=== PATIENT | female | born 1955 | race Caucasian/White ===

== ENCOUNTER 2016-05-11 10:04 | Inpatient (IN) ==
[2016-05-11] MEDS ORDERED: Ondansetron 4 MG/2 ML VIAL IVP PRN ×2 (12:27→16:49)
[2016-05-11] MEDS ORDERED: Naloxone 0.4 MG/ML INJ IVP PRN ×2 (12:27→16:49)
[2016-05-11] MEDS ORDERED: *HR* HYDROmorphone (PF) 1 MG/ML SYRINGE IVP PRN ×3 (12:29→16:49)
[2016-05-11] MEDS ORDERED: Acetaminophen IV 1,000 MG/100 ML INFUS..BTL IVPB PRN ×2 (12:29→16:49)
[2016-05-11] MEDS ORDERED: 0.9 % Sodium Chloride 1,000 ML IVC SCH ×2 (12:30→16:49)
--- NOTE | 2016-05-11 12:35 | General Surg History&Physical ---
<Leticia Mendoza - Last Filed: 05/11/16 12:32> Date of Encounter: 05/11/16 Time of Encounter: 12:15 Assessment and Plan (1) Inflammation of colonic mucosa Current Visit: Yes Status: Acute The assessment and plan as outlined above was discussed with the patient and/or family members who expressed understanding and agreement. All questions were answered. NPO with IV fluids- 100ml/hour IV antibiotics- Zosyn Supportive care and pain control Plan for diagnostic laparoscopy and possible appendectomy today with Dr. Hein- consent complete Serial abdominal exams Repeat am labs Incentive Spirometer every 1 hour while awake (2) DVT prophylaxis Current Visit: Yes Status: Acute The assessment and plan as outlined above was discussed with the patient and/or family members who expressed understanding and agreement. All questions were answered. EPCDs to bilateral lower extremities Start heparin 5,000 units SQ twice daily for DVT prophylaxis tomorrow 05/12/16 History of Present Illness Chief complaint: Abdominal pain HPI: Ms. Diallo is a 60 year old female with no significant past medical history. She states that she had sudden onset central abdominal discomfort yesterday morning which has been constant. She states that the pain has progressively worsened and is now located in her right lower quadrant. She reports a total of 7 episodes of diarrhea yesterday and through the night. Denies any melena or hematochezia. She typically has a bowel movement daily and denies any recent changes in bowel habits up until yesterday. She is unable to pass flatus today. Denies any nausea or vomiting. Denies any fevers or chills. Denies difficulty with urination. Denies any shortness of breath of chest pains. She has had a CT scan at [facility] which shows evidence of cecal inflammation and possible appendicitis. She has been transferred to [place] for further work-up and treatment. Past Med Surg Social Fam HX - Past Medical History Source: patient Medical history: no medical history Psychiatric history: no psych history - Past Surgical History Surgical History: other (Colonoscopy 2 years ago was normal with Dr. Suarez), arthroscopy (left knee) - Social History Smoking Status: Never smoker Smokeless Tobacco Status: No Alcohol use: none Drug use: none Current living situation: Home - Independent Activity Level: Independent ambulation Recent Out of Country Travel Within the Last 8 Weeks: No Exposure or Possible Exposure to Illness During Travel: No - Family History Mother Living Status: Still Living Hx Family Cardiac Disorders: Yes (Recent Aortic valve replacement) Hx Family Endocrine Disorder: Yes (DM) Father Living Status: Still Living Medications and Allergies No Known Home Drugs 05/11/16 [History] Allergies No Known Allergies Allergy (Verified 05/11/16 09:13) Review of Systems All systems PM: reviewed and no additional remarkable complaints except as stated (in the HPI) All systems PM: A 10-system review of systems was performed and is negative for pertinent findings except as documented above in the HPI. General Surgery Exam Initial Vital Signs Temp Pulse Resp BP Pulse Ox 98.1 F 85 16 114/62 96 05/11/16 11:57 05/11/16 11:57 05/11/16 11:57 05/11/16 11:57 05/11/16 11:57 - General physical appearance well developed, well nourished, no distress, moderate pain - Eyes normal ocular movement - ENT normal mucosa, atraumatic, normocephalic - Neck trachea midline - Respiratory normal respiratory effort, clear to auscultation - Cardiovascular Cardiovascular exam: Present: RRR - Abdomen Abdomen general surgery: Present: bowel sounds present, soft, distended, tender Abdominal Tenderness: Present: diffusely (worst pain is currently in the RLQ) - Integumentary Integumentary general surgery: Present: warm and dry - Neurologic Present: CN 2-12 grossly intact - Psychiatric Psychiatric general surgery: Present: appropriate, oriented to person, oriented to place, oriented to time, speech is normal, memory intact Results - Labs All other labs normal. - Attending Attestation I examined this patient and my medical decision-making was reviewed with the GAS PUMPING STATION SUPERVISOR/PA/Advanced Practice Nurse/Resident Physician. I agree with the documented findings, disposition and treatment plan as described except to the extent set forth below. <Angel LuisBakariChivo M - Last Filed: 05/11/16 13:21> Date of Encounter: 05/11/16 History of Present Illness HPI: Ms. Diallo is a 60 year old female Review of Systems All systems PM: A 10-system review of systems was performed and is negative for pertinent findings except as documented above in the HPI. General Surgery Exam Initial Vital Signs Temp Pulse Resp BP Pulse Ox 98.1 F 85 16 114/62 96 05/11/16 11:57 05/11/16 11:57 01/24/17 11:57 05/11/16 11:57 05/11/16 11:57 Results - Labs All other labs normal. - Attending Attestation I reviewed the assessment and examination above. Patient does have RLQ pain and tenderness. No masses noted. I personally reviewed the CT scan images and am concerned about the cecal inflammation. Although radiology (who I have spoken with personally) feels that this is appendicitis with secondary inflammation of the cecum, I am also concerned about the possibility of this being a primary colitis with secondary involvement of the appendix. I will plan on performing a diagnostic laparoscopy and evaluate the cecum and appendix. If there is evidence of significant cecal inflammation (concerning for possible IBD) then I will likely perform biopsies and defer on an appendectomy. Otherwise, an appendectomy will be performed. Discussed with the patient and family and they agree to the above plan.
--- NOTE | 2016-05-11 13:31 | Anesthesia Evaluation PreOp ---
Date of Encounter: 05/11/16 Time of Encounter: 13:29 - Past History Planned Operation: Lap. Appy Cardiac History: Denies any Significant Hx Pulmonary History: Denies Any Significant HX TYPE CASTER History: Denies Any Significant HX Other Medical History: Denies Any Significant HX Anesthesia History: No Prior Anesthetic Complications, Past Anesthesia (Knee Arthroscopy, Colonoscopy) : No Alcohol Use: none Drug use: none Medications and Allergies No Known Home Drugs 05/11/16 [History] Allergies No Known Allergies Allergy (Verified 05/11/16 13:57) - Meds/Allergy Pre-op Review Medications Reviewed: Yes Allergies Reviewed: Yes Beta Blockers on Current Med List: No Anesthesia Results - Labs Laboratory Tests 05/11/16 05/11/16 05/11/16 09:22 09:22 09:46 WBC 11.1 Hgb 12.9 Hct 38.2 Plt Count 186 INR 1.2 Sodium 139 Potassium 3.7 Chloride 107 Carbon Dioxide 20 BUN 9 Creatinine 0.77 Anesthesia Exam O2 Sat Height 1.63 m Weight 90.718 kg O2 Sat by Pulse Oximetry 96 Vital Signs Temp Pulse Resp BP Pulse Ox 98.1 F 85 16 114/62 96 05/11/16 11:57 05/11/16 11:57 05/11/16 11:57 05/11/16 11:57 05/11/16 11:57 Height: 5'4'' Weight: 200# NPO (# of Hours): > 8 hrs Pain Scale: 0 Pain Scale Used: Numeric (1 - 10) - HEENT Pupil (Motor): Pupils equal, EOMI Mallampati: III Teeth: Normal Oral Opening: Greater than 3 - TYPE CASTER LOC: Oriented TYPE CASTER Motor: Normal RUE, Normal LUE, Normal RLE, Normal LLE, Normal Face TYPE CASTER Sensory: Normal: RUE, LUE, RLE, LLE, Face - Cardiac Rhythm: Regular Murmur: None JVD: No Carotid Bruit: No - Pulmonary Breath Sounds: bilateral Clear Respiratory Effort: Symmetrical Anesthesia Assess/Plan ASA Score: 1 Modified Maty Scale for Level of Consciousness: Cooperative, oriented, and tranquil Anesthetic Plan: General Autologous Blood: Yes Monitoring Plan: Standard Monitors Recovery Plan: PACU
[2016-05-11] MEDS ORDERED: *HR* Propofol 200 MG/20 ML VIAL IVP ONE (14:36)
[2016-05-11] MEDS ORDERED: *HR* FentaNYL (PF) 100 MCG/2 ML VIAL ONE (14:39)
[2016-05-11] MEDS ORDERED: *HR* Rocuronium Bromide 50 MG/5 ML VIAL ONE (14:41)
[2016-05-11] MEDS ORDERED: Lidocaine -MPF 2% 2 ML VIAL ONE (14:41)
[2016-05-11] MEDS ORDERED: *HR* Midazolam HCl 2 MG/2 ML VIAL ONE (14:46)
[2016-05-11] MEDS ORDERED: *HR* Promethazine 25 MG/ML VIAL IVP PRN (14:56)
[2016-05-11] MEDS ORDERED: Ondansetron 4 MG/2 ML VIAL ONE (15:09)
[2016-05-11] MEDS ORDERED: Dexamethasone 4 MG/ML VIAL ONE ×2 (15:09)
--- NOTE | 2016-05-11 15:46 | Operative Note ---
Date of procedure: 05/11/16 Pre-op diagnosis: Appendicitis, possible cecal colitis Post-op diagnosis: other (Acute appendicitis with secondary cecal inflammation) Procedure: 1. Diagnostic laparoscopy 2. Laparoscopic appendectomy Anesthesia: JOHN Surgeon: Chivo Hein Bakery Technician: Salina Chase Specimen: appendix Condition: stable Disposition: PACU Procedure in Detail: Date of surgery: 05/11/16 After properly identifying the patient, the patient was brought to the operating room and placed in the supine position. After proper IV sedation was achieved followed by general endotracheal intubation, the patient's abdomen was prepped and draped in a normal sterile fashion. A timeout was performed noting the patient's name and type of procedure to be performed. A subumbilical incision with an 11 blade scalpel was made down to the level of the rectus fascia. The rectus fascia was incised and the abdomen was entered and a 12 mm port was placed in the incision. A laparoscopic camera was placed through the port which showed no injury to the intra-abdominal organs upon entry and the abdomen was insufflated with carbon dioxide. A suprapubic 5 mm port and a left lower quadrant 5 mm port were placed under direct camera visualization. The right lower quadrant was examined and it appeared to be somewhat of a phlegmon in the cecal area. There was size erythematous exudate present as well. Eventually the tinea of the cecum could be identified which would lead to the suspected location of the appendix however this portion of the bowel was "plastered" against the cecum with surrounding inflammation. There was no evidence of "creeping fat" encroaching on the cecum and the ileum did look free of any type of disease concerning for inflammatory bowel disease. Although there was significant signs of inflammation surrounding the location of the appendix and cecum this did not appear to be colitis but rather was appendicitis with surrounding cecal inflammation. The epiploica near the location of the appendix was carefully and bluntly dissected away with a nontraumatic grasper. [place] dissector was used to dissect around the base of the appendix and a nontraumatic grasper was then used to further carefully dissect in this plane. A laparoscopic SHELBY stapler was then used to dissect across the base of the appendix and dissection of the meso appendix was performed with a laparoscopic LigaSure. The appendix and surrounding meso appendix was then removed from the abdomen via an Endobag. The right lower quadrant was then irrigated with normal saline solution as well as the pelvis and reinspection showed maintenance of hemostasis. All ports were removed from the abdomen after the abdomen was desufflated. The subumbilical incision was closed by reapproximating the fascia with a figure -of-eight 0 Vicryl suture. The subcutaneous tissue was reapproximated with an interrupted 3-0 Vicryl suture and the epidermal and dermal layers for the remaining incisions were closed with 4-0 Monocryl sutures. Needle, sponge, and instrument counts were correct 2 and the incisions were covered with Steri- Strips and Band-Aids. The patient was aroused from IV sedation, extubated in the operating room without complication, and transported to the recovery room in stable condition.
[2016-05-11] MEDS ORDERED: Piperacillin/Tazobactam 3.375 GM in D5% in Water (Mini-Bag+) 100 ML IVPB SCH (16:00)
--- NOTE | 2016-05-11 16:29 | Anesthesia Evaluation Post Op ---
Date of Encounter: 05/11/16 Time of Encounter: 16:28 - Vital Signs Vital Signs: Vital Signs/O2 Sat/Glucose, Most Current Temp Pulse Resp BP Pulse Ox 05/11/16 16:23 80 18 143/75 97 05/11/16 16:13 74 18 134/73 100 05/11/16 16:03 99.5 F 73 20 131/72 100 - Lungs Lungs: Clear Ascult./Percussion - Airway Airway: Non-obstructed - Cardiovascular Regular Rate - Mental Status Mental Status: Alert & Oriented, Answers Appropriately, Asleep with brisk response to light stimulation - Pain Pain Scale: 0 Pain Scale used: Numeric (1 - 10) - Nausea Vomiting Nausea Vomiting: Not Present - Hydration Hydration: Tolerates oral liquids, Has not voided - Discharge PostOp Status: Transfer Patient to floor Anes Supervising Prov Stmt: PT seen/evaluated, VSS and pt has met criteria for discharge to home. - MD Jocelynn
[2016-05-11] MEDS ORDERED: *HR* Heparin 5,000 UNIT/ML VIAL SQ SCH (19:00)
[2016-05-12] MEDS: Piperacillin/Tazobactam 3.375 GM in D5% in Water (Mini-Bag+) 100 ML IVPB SCH ×2 (00:08→08:01)
[2016-05-12 06:30] LABS: Basophils % 0.1 %; Hematocrit 37.4 % (35.3-44.9); Hemoglobin 12.3 g/dL (11.5-15.4); Immature Granulocytes % 0.5 % (0-4); Lymphocytes # 1.2 K/mcL (0.6-4.6); Lymphocytes % 7.9 %; Mean Corpuscular HGB Conc 32.9 g/dL (31.6-35.5); Mean Corpuscular Hemoglobin 30.4 pg (28.0-33.3); Mean Corpuscular Volume 92.6 fL (83.0-100.0); Mean Platelet Volume 10.4 fL (9.4-12.4); Monocytes # 0.7 K/mcL (0.0-1.3); Monocytes % 4.9 %; Platelet Count 185 K/mcL (140-400); Red Blood Count 4.04 M/mcL (3.82-4.97); Red Cell Distribution Width 13.3 % (11.5-14.5); Segmented Neutrophils % 86.6 %
[2016-05-12 06:47] LABS: BUN/Creatinine Ratio 14 (6-26); Blood Urea Nitrogen 11 mg/dL (7-20); Calcium 9.3 mg/dL (8.6-10.8); Carbon Dioxide 21 mEq/L (19-29); Chloride 105 mEq/L (98-109); Glucose 152 mg/dL (70-99); Osmolality,Calculated 286 (280-300); Potassium 4.1 mEq/L (3.5-4.5); Sodium 137 mEq/L (136-145); eGFR For African Americans > 60 (> 60); eGFR For Non-African Americans > 60 (> 60)
[2016-05-12] MEDS ORDERED: Pantoprazole 40 MG VIAL IVP SCH ×2 (09:00)
[2016-05-12 11:06] VITALS: BP 120/74
--- NOTE | 2016-05-12 11:50 | Discharge Summary ---
Date of Encounter: 05/12/16 Time of Encounter: 11:45 - Discharge Diagnosis (1) Inflammation of colonic mucosa Priority: Primary Status: Resolved (2) DVT prophylaxis Priority: Secondary Status: Acute - Discharge Medications Prescriptions: Amoxicillin/Clavulanate [Augmentin] 875 mg PO BIDWM #14 tablet Docusate [Colace] 100 mg PO BID PRN #30 capsule PRN Reason: Constipation HYDROcodone/Acet 5/325 mg [Lincoln 5-325 mg] 1 tab PO Q6H PRN #30 tab PRN Reason: Pain Home Medications: Amoxicillin/Clavulanate [Augmentin] 875 mg PO BIDWM #14 tablet 05/12/16 [Rx] Docusate [Colace] 100 mg PO BID PRN #30 capsule 05/12/16 [Rx] HYDROcodone/Acet 5/325 mg [Lincoln 5-325 mg] 1 tab PO Q6H PRN #30 tab 05/12/16 [Rx ] Allergies/Adverse Reactions: Allergies No Known Allergies Allergy (Verified 05/11/16 13:57) General Surgery Exam Initial Vital Signs Temp Pulse Resp BP Pulse Ox 98.1 F 85 16 114/62 96 05/11/16 11:57 05/11/16 11:57 05/11/16 11:57 05/11/16 11:57 05/11/16 11:57 - General physical appearance well developed, well nourished, no distress - Eyes normal ocular movement - ENT normal mucosa, atraumatic, normocephalic - Neck trachea midline - Respiratory normal respiratory effort, clear to auscultation - Cardiovascular Cardiovascular exam: Present: RRR - Abdomen Abdomen general surgery: Present: bowel sounds present, soft, distended, tender (mildly tender, expected post-operative tenderness) - Incision Incision: Present: clean and dry, intact - Integumentary Integumentary general surgery: Present: warm and dry - Neurologic Present: CN 2-12 grossly intact - Musculoskeletal Present: normal gait - Psychiatric Psychiatric general surgery: Present: appropriate, oriented to person, oriented to place, oriented to time, speech is normal, memory intact Date of admission: 05/11/16 13:42 Primary care physician: PCP NO Discharging clinician: Chivo Har[facility]) Anticipated date of discharge: 05/12/16 - Patient Status Disposition: Home, Self-Care Condition: Good Functional capacity at discharge: independent ambulation Overall status at discharge: patient is progressing back to baseline - Discharge Instructions Follow Up With: NO,PCP [Primary Care Provider] - Leticia Mendoza TIRE LAYER [Advanced Practice Nurse] - 05/24/16 9:45 am (surgery follow-up) Additional Instructions: #1 may shower, no tub bath for 2 weeks #2 wash incisions with soap and water and pat dry daily #3 no lifting, pushing, pulling more than 15 pounds for the next 2 weeks #4 no driving until off narcotics for 24 hours and able to safely react in the car #5 may climb stairs - Diet and Activity Activity: other (See additional instructions above) Diet: advance to your usual diet - Hospital Course Hospital course: Ms. Diallo is a 60 year old female presented to the hospital with a 24- abdominal pain. She did have a CAT scan which acute appendicitis and cecal inflammation. The patient was taken to the operating room for a diagnostic laparoscopy and appendectomy with Dr. Hein. On postoperative day #1,the patient states that she feels much better. Her pre-operative pain is resolved. She is tolerating regular food without nausea/vomiting. Her vital signs are stable and she is afebrile. She is ambulating and voiding without difficulty. We will begin discharge planning and plan for outpatient follow-up in the next 10-14days. - Time Spent with Patient Total time spent providing and/or coordinating discharge services: Less than 30 minutes Labs on day of discharge: Labs from last 24 hours 05/12/16 05/12/16 06:18 06:18 WBC 15.0 H RBC 4.04 Hgb 12.3 Hct 37.4 MCV 92.6 MCH 30.4 MCHC 32.9 RDW 13.3 Plt Count 185 MPV 10.4 Immature Gran % 0.5 Seg Neutrophils % 86.6 Lymphocytes % 7.9 Monocytes % 4.9 Eosinophils % 0.0 Basophils % 0.1 Neutrophils # 13.0 H Lymphocytes # 1.2 Monocytes # 0.7 Eosinophils # 0.0 Basophils # 0.0 Sodium 137 Potassium 4.1 Chloride 105 Carbon Dioxide 21 BUN 11 Creatinine 0.80 Est GFR ( Amer) > 60 Est GFR (Non-Af Amer) > 60 BUN/Creatinine Ratio 14 Glucose 152 H Calculated Osmolality 286 Calcium 9.3 - Attending Attestation I examined this patient and my medical decision-making was reviewed with the GLASS CUTTER HELPER/PA/Advanced Practice Nurse/Resident Physician. I agree with the documented findings, disposition and treatment plan as described except to the extent set forth below.
[2016-05-12] MEDS ORDERED: *HR* HYDROmorphone (PF) 1 MG/ML SYRINGE IVP PRN (11:53)
[2016-05-12] MEDS ORDERED: *HR* HYDROcodone/Acet 5/325 mg TABLET PO PRN (11:53)
[2016-05-12] MEDS ORDERED: *HR* Heparin 5,000 UNIT/ML VIAL SQ SCH ×2 (19:00)
== END 2016-05-12 15:30 | disposition home or self-care (01) | DRG 343 ==
LOC: 3NENU
PROVIDERS: ADMIT Surgery; ATTEND Surgery